=== PATIENT | male | born 1985 ===

== ENCOUNTER 2024-10-23 13:14 | Emergency (ER) | payer SELFPAY ==
[2024-10-23] VITALS (12 sets, daily range): BP systolic 144–154; BP diastolic 82–105; PULSE 54–112; RESP 12–26; TEMP 36.8; O2SAT 96–99
--- NOTE | 2024-10-23 14:21 | ED.GENADUL_ITS ---
Discharge Plan Disposition Patient Disposition: Home Condition: Stable Discharge Details Clinical Impression: Alcohol abuse Primary Care Provider: None,None ED Provider: Yaya Block Home Meds and New Rx's Prescriptions: New chlordiazepoxide HCl 25 mg capsule See Rx Instructions .ROUTE .COMPLEX Qty: 15 0RF Rx Instructions: Day 1: 50mg q6h Day 2: 25mg q6h Day 3: 25mg q12h Day 4: 25mg at night Discharge Instructions Additional Instructions: Try to refrain from drinking alcohol while taking Librium Reach out to the detox centers in the folder that was provided to you If you feel more ill, have new symptoms such as persistent vomiting or difficulty breathing return to the emergency department for reevaluation HPI General Mode of arrival: ambulatory . Date/Time Provider Initiated Documentation: 10/23/24 13:56 . Limitations to Documentation: no limitations . Information obtained by: patient . History of Present Illness 39 year old M presents to the emergency department with the chief complaint of wants help with alcohol use, described as moderate, Patient started experiencing this month(s) (2) and it has been constant. No relieving factors improve symptom(s), No exacerbating factors reported . Patient notes denies chest pain, fever/chills and shortness of breath. Patient did receive the following treatments prior to arrival, none Related Data Home Medications ?Medication ?Instructions ?Recorded ?Confirmed chlordiazepoxide HCl 25 mg capsule See Rx Instructions .Route 10/23/24 .COMPLEX #15 caps Previous Rx's ?Medication ?Instructions ?Recorded chlordiazepoxide HCl 25 mg capsule See Rx Instructions .Route 10/23/24 .COMPLEX #15 caps Allergies Allergy/AdvReac Type Severity Reaction Status Date / Time Penicillins Allergy Mild Skin Rash Verified 10/23/24 13:32 General Stated Complaint: ETOHWithdr YARY: 3 Review of Systems All systems reviewed & are unremarkable except as noted in HPI and below Constitutional Constitutional: Denies chills, Denies fever(s) and Denies weakness Cardiovascular Cardiovascular: Denies chest pain and Denies dyspnea Respiratory Respiratory: Denies cough and Denies dyspnea Gastrointestinal Gastrointestinal: Denies abdominal pain, Denies nausea and Denies vomiting Neurologic Neurologic: Denies weakness Psychiatric Psychiatric: Denies depression Exam Const General: no acute distress Orientation: alert HENMT Head: normal to inspection Ears: external ears normal General nose exam: external nose normal Mouth: moist mucous membranes Eyes General: appearance normal, both eyes and all related structures Neck Neck: normal visual inspection Resp Effort & Inspection: normal respiratory effort and able to speak in complete sentences Auscultation: clear to auscultation bilaterally Cardio Jugular venous pressure: no JVD Rate: regular rate Heart Sounds: no murmurs GI Palpation: soft and nontender Skin General skin exam: no rashes or lesions noted Neuro General: patient alert and patient oriented x3 Extrem General: normal to inspection Psych Mental Status: mental status grossly normal Course Vital Signs Vital signs: Vital Signs Temperature 36.8 C 10/23/24 13:24 Pulse 112 H 10/23/24 13:24 Respiratory Rate 15 10/23/24 13:24 Blood Pressure 154/101 H 10/23/24 13:24 Pulse Oximetry 97 10/23/24 13:24 Temperature 36.8 C 10/23/24 13:24 Pulse 112 H 10/23/24 13:24 Respiratory Rate 15 10/23/24 13:24 Blood Pressure 154/101 H 10/23/24 13:24 Blood Pressure Position Sitting 10/23/24 13:24 Pulse Oximetry 97 10/23/24 13:24 Oxygen Delivery Method Room Air 10/23/24 13:24 Oxygen Flow Rate 0 10/23/24 13:24 Medical Decision Making 39-year-old male who denies any chronic medical problems comes in requesting assistance coming off alcohol. He says that he has been drinking anywhere from 10-24 beers per day. He denies any other drug use. He is well-appearing on exam, his heart rate on my exam is 90. He has no focal deficits, soft nontender abdomen. He is clinically sober, oriented x 4. His last drink was around noon today. Given his reassuring exam I do not feel lab work is indicated. I will order him a dose of Librium and have livestock judging coach speak with the patient. Patient stable, met with livestock judging coach and given resources. Discussed being p rescribed Librium which she consents to and agrees to not drink while taking this He is shukri reach out to the detox centers and return precautions given Differential Diagnosis Differential Diagnosis: Alcoholism, alcohol abuse Quality:SDOH Health Related Social Needs: No Data to Display PFSH All Active Problems Alcohol abuse (Chronic) Social History Smoking risk assessment performed?: No Alcohol Intake: current Alcohol Intake frequency: 3 or more drinks per day Alcohol type: beer Drug use: Occasionally Details: Adeel Vape PAWSS Have you Been Recently Intoxicated or Drunk Within the Last 30 days?: Yes Have you Ever Experienced Previous Episodes of Alcohol Withdrawal?: No Have you ever Experienced Withdrawal Seizures?: No Have you ever Experienced Delirium Tremens(DT)s?: No Have you ever undergone Alcohol Rehabilitation Treatment (i.e, inpt ot outpatient treatment programs)?: No Have you ever Experienced Blackouts?: Yes Have you ever Combined Alcohol with other Downers within the last 90 days?: Yes Have you ever Combined Alcohol with any other Substance of Abuse during the last 90 days?: Yes Evidence of Increased Autonomic Activity (i.e. HR>120, tremor, sweating, agitation, nausea)?: Yes Result: 5
[2024-10-23] MEDS: chlordiazePOXIDE 25 MG CAP 50 MG PO (15:03)
== END 2024-10-23 15:51 | disposition home or self-care (01) ==
PROVIDERS: Emergency Provider Emergency Medicine
DX: F10.139 Alcohol abuse with withdrawal, unspecified (principal)
CPT/HCPCS: 99283